=== PATIENT | male | born 2000 | race Two or more races ===

== ENCOUNTER 2021-03-28 18:31 | Emergency (ER) | payer SELFPAY ==
[~2021-03-28] VITALS: Ht 180.3 cm; Wt 88.6 kg
[2021-03-28 18:38] VITALS: BP 125/66
[2021-03-28] MEDS ORDERED: mupirocin 2% ointment 22GM TP ONE (20:55)
== END 2021-03-28 22:13 ==
LOC: ER 18:32
DX: S80.211A Abrasion, right knee, initial encounter (principal); S60.311A Abrasion of right thumb, initial encounter; Z79.2 Long term (current) use of antibiotics; X58.XXXA Exposure to other specified factors, initial encounter; Y93.89 Activity, other specified; Y92.89 Other specified places as the place of occurrence of the external cause; Y99.8 Other external cause status
CPT/HCPCS: 99283